=== PATIENT | female | born 1985 | race Caucasian/White ===

== ENCOUNTER 2017-07-25 00:05 | Emergency (ER) | payer OTHER ==
[~2017-07-25] VITALS: Ht 154.9 cm; Wt 52.2 kg
[~2017-07-25 00:05] MED LIST: BACL10TA PO; [UNRECOGNIZED DRUG - SUPPLY]; paxil PO; tecfidera PO
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
[2017-07-25] MEDS ORDERED: MUPIROCIN 2% TOPICAL OINTMENT 22GM TUBE. TP SCH (02:30)
[2017-07-25] MEDS ORDERED: DIPHTH,PERTUSS(ACELL),TET TOX 0.5 ML DISP.SYRIN. VAX IM ONE (02:30)
[2017-07-25 02:37] VITALS: BP 98/60
== END 2017-07-25 02:37 | disposition home or self-care (01) ==
LOC: ER 00:05
DX: S06.0X0A Concussion without loss of consciousness, initial encounter (principal); S60.031A Contusion of right middle finger without damage to nail, initial encounter; S90.121A Contusion of right lesser toe(s) without damage to nail, initial encounter; F17.210 Nicotine dependence, cigarettes, uncomplicated; F12.10 Cannabis abuse, uncomplicated; Z88.5 Allergy status to narcotic agent; V86.59XA Driver of other special all-terrain or other off-road motor vehicle injured in nontraffic accident, initial encounter; Y93.89 Activity, other specified; Y99.8 Other external cause status; Y92.488 Other paved roadways as the place of occurrence of the external cause
CPT/HCPCS: 29130; 70450; 72125; 99284-25

== ENCOUNTER 2020-11-03 14:31 | Emergency (ER) | payer MEDICAID, OTHER ==
[~2020-11-03] VITALS: Ht 157.5 cm; Wt 72.7 kg
[2020-11-03] MEDS ORDERED: CEPHALEXIN 250 MG CAPSULE PO ONE (15:30)
[2020-11-03] MEDS ORDERED: IBUPROFEN 600 MG TABLET. PO ONE (15:30)
--- NOTE | 2020-11-03 15:35 | PHYS DOC ---
Past History Past Medical History: Hypotension, Hepatitis Additional Past Medical Histor: Hep C and Multiple Sclerosis Past Surgical History: No Surgical History Alcohol Use: None Drug Use: Marijuana Adult General Chief Complaint Chief Complaint: BREAST PROBLEM HPI HPI Patient is a 34-year-old female presents emergency department chief complaint of left breast pain that she noticed just yesterday. Patient states she discussed it with her friend who told her she should come straight to the ER for evaluation. Patient states she is 2 weeks , breast-fed for approximately 1 week, has not breast-fed for the past week. Patient denies any purulent drainage from her nipples, complains of pain to the lower side of her breast. Also complains of pain on the top side of her breast along an area of redness. Patient denies fever or chills. Patient denies nausea, vomiting, diarrhea or chest pain. Patient denies shortness of breath. Patient denies allergies to medications, states she only takes a vitamin at home, patient states she is no longer breast-feeding and is now feeding her formula. Patient states she does not have a primary care physician. Review of Systems Review of Systems 14 body systems of review of systems have been reviewed. See HPI for pertinent positives and negative responses, otherwise all other systems are negative, nonpertinent or noncontributory. Allergies Allergies Allergies Coded Allergies Type Severity Reaction Last Updated Verified codeine Adverse Reaction Severe 11/03/20 Yes Physical Exam Physical Exam Constitutional: Well developed, well nourished, no acute distress, non-toxic appearance. 34-year-old female no apparent distress. HENT: Normocephalic, atraumatic, bilateral external ears normal, oropharynx moist, no oral exudates, nose normal. Eyes: PERRLA, EOMI, conjunctiva normal, no discharge. Neck: Normal range of motion, no tenderness, supple, no stridor. Cardiovascular:Heart rate regular rhythm, no murmur Lungs & Thorax: Bilateral breath sounds clear to auscultation Abdomen: Bowel sounds normal, soft, no tenderness, no masses, no pulsatile masses. Skin: Warm, dry, no erythema, no rash. Back: No tenderness, no CVA tenderness. Extremities: No tenderness, no cyanosis, no clubbing, ROM intact, no edema. Neurologic: Alert and oriented X 3, normal motor function, normal sensory function, no focal deficits noted. Psychologic: Affect normal, judgement normal, mood normal. Breast examination: A breast examination was performed with female ED nurse at bedside for escort, patient's right breast soft without induration, abscesses, redness, pain to palpation, no masses appreciated, within normal limits, there is no leaking from the nipple no infectious process appreciated. Patient's left breast soft without induration, masses, abscesses, normal skin temperature, no erythema appreciated, no leaking from nipple, the nipple and areola is not eryth ematous, no induration, skin is intact, there is a small area of erythema at the 12 o'clock position that extends approximately 3 cm, pain with palpation, there is no purulent material expressed from nipple. Current Patient Data Vital Signs Vital Signs Date Time Temp Pulse Resp B/P (MAP) Pulse Ox O2 Delivery O2 Flow Rate FiO2 11/03/20 14:46 98.0 76 18 83/46 (58) 98 Room Air EKG EKG [] Radiology/Procedures Radiology/Procedures [] Heart Score C/O Chest Pain: No Risk Factors: Risk Factors: DM, Current or recent (<one month) smoker, HTN, HLP, family history of CAD, obesity. Risk Scores: Risk Factors: DM, Current or recent (<one month) smoker, HTN, HLP, family history of CAD, obesity. Course & Med Decision Making Course & Med Decision Making Pertinent Labs and Imaging studies reviewed. (See chart for details) 34-year-old female, vital signs reviewed, presents emergency department concerning left breast pain that started yesterday. Patient is 2 weeks , breast-fed for 1 week without stated problems, states she has not breast-fed for the past week and noticed some pain yesterday in her left breast. Physical examination noted mild erythema to the 12 o'clock position of her breast without induration or swelling, there was no induration of the nipple air areolar area, there is no masses felt of the left breast at patient's complaint of pain. The patient was unable to express any breastmilk or purulence from nipple, considered sending any expressed material to lab for culture however no material could be expressed. This is likely a clogged breast milk duct, low likelihood of mastitis, will empirically cover with p.o. Keflex related to area of erythema at 12 o'clock position just above the areola, will discuss with patient using warm compresses to breast and wearing supportive bra, attempt to express breast milk to relieve any clogged breast milk ducts, will have patient follow-up with PCP for reexamination soon. First dose of Keflex given in the ED today. Patient gave verbal understanding of discharge home instructions, prescription use, follow-up with PCP this week, return ER precautions or concerns, patient had no further questions or concerns and was discharged home without incident. Dragon Disclaimer Dragon Disclaimer This electronic medical record was generated, in whole or in part, using a voice recognition dictation system. Departure Departure: Impression: Primary Impression: Occlusion of breast duct Disposition: HOME / SELF CARE / HOMELESS Condition: GOOD Referrals: PCP,NO (PCP) Patient Instructions: , Mastitis Additional Instructions: You are examined today in the emergency department for left breast pain. You were breast-feeding this past week, your physical examination was concerning for a possible clogged duct, please use warm compresses daily as we discussed, wear supportive bra, try to express breast milk to relieve clogged breast milk duct, I have prescribed for you an antibiotic to cover any infectious process. Please take as directed. You [place] with [place] [facility] [place] [address] [place] [address], the telephone number is [phone], please call for an appointment to be seen this week for reexamination. Please return the emergency department for worsening symptoms or other concerns. EMERGENCY DEPARTMENT GENERAL DISCHARGE INSTRUCTIONS Thank you for coming to [facility] (ED) today and trusting us with you care. We trust that you had a positivie experience in our Emergency Department. If you wish to speak to the department management, you may call the director at [phone]. YOUR FOLLOW UP INSTRUCTIONS ARE FOLLOWS: 1. Do you have a private Doctor? If you do not have a private doctor, please ask for a resource list of physicians or clinics that may be able to assist you with follow up care. 2. The Emergency Physician has interpreted your x-rays. The X-Ray specialist will also review them. If there is a change in the findings, you will be notified in 48 hours when at all possible. 3. A lab test or culture has been done, your results will be reviewed and you will be notified if you need a change in treatment. ADDITIONAL INSTRUCTIONS AND INFORMATION: 1. Your care today has been supervised by a physician who is specially trained in emergency care. Many problems require more than one evaluation for a complete diagnosis and treatment. We recommend that you schedule your follow up appointment as recommended to ensure complete treatment of you illness or injury. If you are unable to obtain follow up care and continue to have a problem, or if your condition worsens, we recommend that you return to the ED. 2. We are not able to safely determine your condition over the phone nor are we able to give sound medical advice over the phone. For these safety reasons, if you call for medical advice we will ask you to come to the ED for further evaluation. 3. If you have any questions regarding these discharge instructions please call the ED at [phone]. SAFETY INFORMATION: In the interest of safety, wellness, and injury prevention; we encourage you to wear your sealbelt, if you smoke; quite smoking, and we encourage family to use a protective helmet for bicycling and other sporting events that present an increased risk for head injury. IF YOUR SYMPTOMS WORSEN OR NEW SYMPTOMS DEVELOP, OR YOU HAVE CONCERNS ABOUT YOUR CONDITION; OR IF YOUR CONDITION WORSENS WHILE YOU ARE WAITING FOR YOUR FOLLOW UP APPOINTMENT; EITHER CONTACT YOUR PRIMARY CARE DOCTOR, THE PHYSICIAN WHOSE NAME AND NUMBER YOU WERE GIVEN, OR RETURN TO THE ED IMMEDIATELY. Scripts Cephalexin (CEPHALEXIN) 500 Mg Capsule 1 CAP PO QID for breast infection for 7 Days, #28 CAP 0 Refills Prov: MARCELO MCCURDY APRN 11/03/20 MARCELO MCCURDY APRN Nov 03, 2020 15:35
[2020-11-03] MEDS ORDERED: CEPH500C PO (15:46)
[2020-11-03 16:20] VITALS: BP 97/54
== END 2020-11-03 16:20 | disposition home or self-care (01) ==
LOC: ER 14:31
DX: N60.42 Mammary duct ectasia of left breast (principal); F12.10 Cannabis abuse, uncomplicated
CPT/HCPCS: 99283